=== PATIENT | female | born 1990 ===

== ENCOUNTER 2021-03-20 06:10 | Day surgery (SDC) | payer OTHER ==
[~2021-03-20 06:10] MED LIST: ELIQUIS5 MG PO
[2021-03-20] MEDS ORDERED: FLAGYL500MG PO (10:00)
[2021-03-20] MEDS ORDERED: PERCOCET 5-3251 EACH PO (10:00)
[2021-03-20] MEDS ORDERED: COLACE100 MG PO (10:00)
[2021-03-20] MEDS ORDERED: CIPRO500 MG PO (10:00)
[2021-03-20] MEDS ORDERED: NEURONTIN300 MG PO (14:12)
== END 2021-03-20 14:40 | disposition home or self-care (01) ==
LOC: CIR.AMB 06:10
PROVIDERS: ATTEND Surgery
DX: N82.3 Fistula of vagina to large intestine (principal); R15.9 Full incontinence of feces; Z20.822 Contact with and (suspected) exposure to COVID-19

== ENCOUNTER 2022-09-02 11:43 | Inpatient (IN) | payer OTHER ==
[~2022-09-02] VITALS: Ht 165.1 cm; Wt 61.2 kg
[~2022-09-02 11:43] MED LIST changes: +CIPRO500 MG PO; +COLACE100 MG PO; +FLAGYL500MG PO; +NEURONTIN300 MG PO; +PERCOCET 5-3251 EACH PO
[2022-09-02] MEDS ORDERED: LOVENOX60 MG/0.6 SUBCUTANEO (16:24)
[2022-09-02] MEDS ORDERED: PRENATAL CAPLE1 EAC1 PO (16:24)
== END 2022-09-04 11:33 | disposition home or self-care (01) | DRG 833 ==
LOC: NST 11:43 → LDR 13:17 → OB/GYN 09-03 08:59
PROVIDERS: ADMIT Obstetrics & Gynecology; ATTEND Obstetrics & Gynecology
PROC: 4A1HXCZ Monitoring of Products of Conception, Cardiac Rate, External Approach (ICD-10-PCS; principal; 2022-09-02)
DX: O47.03 False labor before 37 completed weeks of gestation, third trimester (principal); Z3A.29 29 weeks gestation of pregnancy; Z20.822 Contact with and (suspected) exposure to COVID-19